=== PATIENT | female | born 1935 | race Caucasian/White ===

== ENCOUNTER → 2020-04-13 | Day surgery (SDC) | payer OTHER ==
[~2020-04-13] MED LIST: ALFALFA250 MG PO; BIOTIN5 M1 PO; CALCIUM500 MG PO; FIBER TABS625 MG PO; FISH OIL 1,0001 EAC9 PO; MACRODANTIN50 MG PO; NORCO 5-325 TA1 EAC1 PO; SWISS KRISS PO; VITAMIN C1000 MG PO; VITAMIN E400 UNI2 PO
[2020-04-13 08:00] LABS: HEMATOCRIT 38.3 % (37.0-47.0); HEMOGLOBIN 12.1 gm/dL (12.0-15.0); MCH 24.7 pg (26.0-34.0); MCHC 31.7 g/dL (28.0-37.0); MCV 77.8 fL (80.0-100.0); MPV 6.9 fl. (7.2-11.1); RBC 4.92 mil/uL (4.20-5.00); RDW-CV 15.9 % (10.5-14.5); WBC 30.6 thou/uL (4.0-11.0)
[2020-04-13 08:04] LABS: CALCIUM 9.1 mg/dL (8.5-10.1); POTASSIUM 3.9 mmol/L (3.5-5.1)
--- NOTE | 2020-04-13 11:48 | OP ---
[facility] [address] [place] [address] OPERATIVE REPORT Name: MARISOL GORDON Room: [facility]#: [id number] Admission: 04/13/20 Attend Phys: Paolo Hansen Discharge: Date of : 35 Report #: [id number] THIS REPORT FOR: //name// cc: JOHNNY CADET MD, HEATHER L. MD ~ THIS REPORT FOR: //name// CC: JOHNNY Hansen DATE OF SERVICE: 04/13/2020 PREOPERATIVE DIAGNOSIS: Left inguinal hernia. POSTOPERATIVE DIAGNOSIS: Left indirect inguinal hernia. OPERATION: Laparoscopic repair of left inguinal hernia with mesh. SURGEON: Paolo Hansen MD ANESTHESIA: General. ESTIMATED BLOOD LOSS: Minimal. SPECIMEN: None. DESCRIPTION OF PROCEDURE: After informed consent was obtained, the patient was brought to the operating room and placed supine. SCDs were placed and working, preoperative antibiotics were administered, general anesthesia was induced. The abdomen was prepped and draped in the usual sterile fashion. A 10 mm incision was made below the umbilicus. Fascia was incised and a trocar was placed. Pneumoperitoneum was established. A left lower quadrant and right lower quadrant 5 mm port was placed. The peritoneum at the left ASIS was scored. The peritoneum was then incised medially and reflected inferiorly. This allowed visualization of the hernia defect. The round ligament was identified. The hernia sac was fully reduced. The Denny's ligament was identified. A pocket was made for the mesh. A large Bard 3DMax mesh was inserted. It was tacked to Denny's ligament with 2 absorbable tacks. I then reapproximated the peritoneum with a running 2-0 V-Loc suture. This covered the mesh completely. The area was then instilled with 20 mL of 0.5% Marcaine plain. The ports were removed under direct vision. The fascia at the umbilicus was closed with a [id number] 0 Vicryl. Skin was closed with 4-0 Monocryl. Incisions were sealed [place] [address] OPERATIVE REPORT Name: MARISOL GORDON Room: [facility]#: [id number] Admission: 04/13/20 Attend Phys: Paolo Hansen Discharge: Date of : 35 Report #: [id number] COMPLICATIONS: None. DISPOSITION: The patient was taken to recovery in satisfactory condition. <ELECTRONICALLY SIGNED> By: Paolo Hansen MD 04/13/20 [id number] [id number] Hansen MD /nt
--- NOTE | 2020-04-13 13:31 | EKG ---
[place] [address] ELECTROCARDIOGRAM REPORT Name: MAIRSOL GORDON Room: [facility]#: [id number] Admission: 04/13/20 Attend Phys: Paolo Arzola Discharge: Date of : 35 Date of Service: 04/13/20 0754 Report #: [id number] THIS REPORT FOR: //name// [facility] Test Date: 2020-04-13 Test Time: 07:54:33 Pat Name: MARISOL COOKURDY Department: Room: Gender: F Grievance Manager: : 1935 Requested By: Paolo Hansen Order Number: [id number] Reading MD: Luis Fernando Gonzales Measurements Intervals [place] Rate: 61 P: 51 OK: 160 QRS: 26 QRSD: 96 T: 26 QT: 406 QTc: 409 Interpretive Statements Sinus rhythm Atrial premature complex No previous ECG available for comparison Electronically Signed On 04-13-2020 13:29:18 CDT by Luis Fernando Gonzales [email or web address] <ELECTRONICALLY SIGNED> By: Luis Fernando Gonzales MD, [facility] 04/13/20 1329 0754 0754 Luis Fernando Gonzales MD, [facility] /EPI
== END | disposition home or self-care (01) ==
LOC: M.SUR
PROVIDERS: Surgery
DX: K40.90 Unilateral inguinal hernia, without obstruction or gangrene, not specified as recurrent (principal); M19.90 Unspecified osteoarthritis, unspecified site; E78.00 Pure hypercholesterolemia, unspecified; M81.0 Age-related osteoporosis without current pathological fracture; Z90.710 Acquired absence of both cervix and uterus; Z98.890 Other specified postprocedural states; Z79.899 Other long term (current) drug therapy; Z79.82 Long term (current) use of aspirin; Z11.59 Encounter for screening for other viral diseases